=== PATIENT | male | born 1960 | race Caucasian/White ===

== ENCOUNTER → 2019-05-23 | Outpatient (CLI) | payer OTHER ==
[~2019-05-23] MED LIST: ASPI81TA85 PO; ATOR80TA59 PO; FISH1000 PO; LABE10TAB PO; MULTCAP PO
[2019-05-23 18:42] LABS: HEMATOCRIT 48.7 % (42.0-52.0); HEMOGLOBIN 15.1 g/dl (13.5-17.5); MEAN CORPUSCULAR HEMOGLOBIN 27.8 pg (27.0-33.0); MEAN CORPUSCULAR VOLUME 89.5 fl (80.0-96.0); PLATELET COUNT, AUTOMATED 182 10^3/uL (150-450); RED BLOOD COUNT 5.44 10^6/uL (4.30-6.10); WHITE BLOOD COUNT 5.8 10^3/uL (4.0-10.0)
[2019-05-23 19:05] LABS: BLOOD UREA NITROGEN 17 MG/DL (7-18); CALCIUM LEVEL 8.3 MG/DL (8.5-10.1); CARBON DIOXIDE LEVEL 28 MEQ/L (21-32); CHLORIDE LEVEL 112 MEQ/L (98-107); CHOLESTEROL LEVEL 220 MG/DL (<200); CHOLESTEROL RISK RATIO 7.857 (<5); CREATININE FOR GFR 1.18 MG/DL (0.70-1.30); GLOMERULAR FILTRATION RATE > 60.0 (>56); GLUCOSE, FASTING 102 MG/DL (70-100); HDL CHOLESTEROL 28 MG/DL (>40); LDL CHOLESTEROL 122 MG/DL (<100); NON-HDL-C 192 MG/DL; POTASSIUM SERUM 4.3 MEQ/L (3.5-5.1); SODIUM LEVEL 145 MEQ/L (136-145); TRIGLYCERIDES LEVEL 351 MG/DL (<150)
== END ==
LOC: M LAB 17:22
PROVIDERS: ATTEND Internal Medicine Cardiovascular Disease
DX: Z01.810 Encounter for preprocedural cardiovascular examination (principal); I25.119 Atherosclerotic heart disease of native coronary artery with unspecified angina pectoris

== ENCOUNTER 2019-05-26 05:44 | Day surgery (SDC) | payer OTHER ==
[~2019-05-26] VITALS: Ht 182.9 cm; Wt 89.7 kg
[2019-05-26] MEDS ORDERED: LR 1,000 ML IV ONE (06:00)
[2019-05-26] MEDS ORDERED: ceFAZolin SOD 2 GM in IV 1 EA IV ONE (06:00)
[2019-05-26] MEDS ORDERED: MIDAZOLAM INJ 2 MG/2 ML VIAL (J2250) As Ordered ONE ×2 (06:39→07:13)
[2019-05-26] MEDS ORDERED: fentaNYL 100 MCG/2 ML INJECTION (J3010) As Ordered ONE ×3 (06:39→08:38)
[2019-05-26] MEDS ORDERED: LIDOCAINE 2% INJ 100 MG/5 ML SDV (FOR ANES.) As Ordered ONE (07:12)
[2019-05-26] MEDS ORDERED: ROCURONIUM BROMIDE 50 MG/5 ML VIAL As Ordered ONE (07:12)
[2019-05-26] MEDS ORDERED: dexameTHASONE 4 MG/ML 1ML VIAL (J1100) As Ordered ONE (07:12)
[2019-05-26] MEDS ORDERED: ONDANSETRON 4MG/2ML VIAL (J2405) As Ordered ONE (07:12)
[2019-05-26] MEDS ORDERED: propofoL 200 MG/20 ML VIAL As Ordered ONE (07:12)
[2019-05-26] MEDS ORDERED: BUPIVACAINE HCL 0.5% 30 ML VIAL As Ordered ONE (07:46)
[2019-05-26] MEDS ORDERED: ACETAMINOPHEN 1000MG 100ML IV BTL (OFIRMEV) (J0131 PER 10MG) As Ordered ONE (07:52)
[2019-05-26] MEDS ORDERED: ePHEDrine SULFATE 25 MG/5 ML(5MG/ML) SYRINGE As Ordered ONE (08:31)
[2019-05-26] MEDS ORDERED: GLYCOPYRROLATE INJ 0.2 MG/ML 2 ML VIAL As Ordered ONE (08:32)
[2019-05-26] MEDS ORDERED: ONDANSETRON 4MG/2ML VIAL (J2405) IV PRN (09:30)
[2019-05-26] MEDS ORDERED: LR 1,000 ML IV SCH ×2 (09:30)
[2019-05-26] MEDS: fentaNYL 100 MCG/2 ML INJECTION (J3010) IV PRN ×4 (09:32→09:50)
--- NOTE | 2019-05-26 09:41 | REP ---
Left ankle: Three views. History: Fluoroscopic imaging. 5 seconds of fluoroscopy time is reported. Findings: A sequence of three last image hold fluoroscopic spot radiographs of the left ankle are presented. Electronically Signed by Leandro Hernandez MD 05/26/2019 12:13 P
--- NOTE | 2019-05-26 09:41 | REP ---
Right ankle: Five views. History: ORIF right ankle. Intraoperative imaging. Findings: Five views of the right ankle document distal fibular tibial pinning. Ankle mortise is intact. 73 seconds of fluoroscopy time is reported as having been utilized. Electronically Signed by Leandro Hernandez MD 05/26/2019 12:13 P
[2019-05-26] MEDS ORDERED: oxyCODONE 5MG TAB As Ordered ONE (10:12)
[2019-05-26] MEDS ORDERED: oxyCODONE 5MG TAB PO STA (10:19)
[2019-05-26] MEDS ORDERED: oxyCODONE 5MG TAB PO ONE (11:30)
[2019-05-26 12:55] VITALS: BP 173/84
--- NOTE | 2019-05-26 13:38 | RO ---
DATE OF PROCEDURE: 05/26/2019 PREPROCEDURE DIAGNOSIS: Right Maisonneuve fracture. POSTPROCEDURE DIAGNOSIS: Right Maisonneuve fracture. PROCEDURE: Open reduction internal fixation right syndesmosis. SURGEON: Kathleen Hernández MD METALWORKER: SHANNON Amador ANESTHESIA: Laryngeal mask airway (LMA). ESTIMATED BLOOD LOSS: 10 mL. IMPLANTS: Two Synthes 4.0 fully threaded cortical screws. COMPLICATIONS: None. CONDITIONS: Stable in recovery. INDICATIONS: Floyd Tobias is a 59-year-old male who sustained a right Maisonneuve fracture after a mechanical fall. Showed instability of his ankle mortise and widening of the medial clear space on gravity stress view. Risks and benefits of surgery were discussed with the patient in detail and include but are not limited infection, damage to surrounding nerves and blood vessels, continued pain and stiffness, need for additional procedures. Informed consent was obtained in the office. DESCRIPTION OF PROCEDURE: The patient was met in the preoperative holding area where his right lower extremity was marked as the correct operative side. He was then taken to the operating room and placed in the supine position in the operating room table. Bony prominences were well padded. He underwent general anesthesia. A well padded tourniquet was placed on the right upper thigh. He was then prepped and draped in a normal sterile fashion. An official time-out was held where the correct patient, operative site, and operative procedure were verified. X-rays of the contralateral uninjured side were taken and used for comparison throughout the case. Esmarch was used to exsanguinate the leg and tourniquet was inflated to 250 mmHg. An incision was made laterally over the fibula. The superficial peroneal nerve was identified and protected throughout the case. Radiographs were performed and external rotation stress tests showed significant instability of the syndesmosis and ankle mortise. The ankle mortise was reduced with gentle compression of the fibula against the tibia. This was then pinned in place with a 0.062 K-wires. X-rays were performed on AP, lateral and oblique views and found to be satisfactory. I then placed two 4.0 mm fully threaded cortical screws across the syndesmosis. External rotation stress test was then performed and found to be stable. Final radiographs were performed in the AP, lateral, and oblique views and found to be satisfactory. Copious irrigation was performed. Skin was closed with 3-0 Vicryl and skin was with 3-0 nylon. Patient was placed into a well padded splint after a sterile dressing was applied. He was extubated and transferred to the recovery room in stable condition. PLAN: Patient will be non-weightbearing in the right lower extremity. He will be on aspirin for deep venous thrombosis (DVT) prophylaxis. He will keep the leg elevated. I will see him back in 2 weeks for suture removal and cast placement. He will need to be non-weightbearing for 10 weeks.
== END 2019-05-26 13:25 | disposition home or self-care (01) ==
LOC: M SDC 05:44
PROVIDERS: ATTEND Orthopaedic Surgery
DX: S82.861A Displaced Maisonneuve's fracture of right leg, initial encounter for closed fracture (principal); W19.XXXA Unspecified fall, initial encounter; Y92.89 Other specified places as the place of occurrence of the external cause; I25.119 Atherosclerotic heart disease of native coronary artery with unspecified angina pectoris; I73.9 Peripheral vascular disease, unspecified; E78.2 Mixed hyperlipidemia; I11.9 Hypertensive heart disease without heart failure; M54.9 Dorsalgia, unspecified; N52.9 Male erectile dysfunction, unspecified; F17.290 Nicotine dependence, other tobacco product, uncomplicated; Z79.899 Other long term (current) drug therapy; Z79.82 Long term (current) use of aspirin; Z95.5 Presence of coronary angioplasty implant and graft; Z95.1 Presence of aortocoronary bypass graft; Z91.19 Patient's noncompliance with other medical treatment and regimen
CPT/HCPCS: 27829; 76000; C1713; J0131; J0690; J1100; J2250; J2405; J3010

== ENCOUNTER → 2020-02-08 | Outpatient (CLI) | payer OTHER ==
[~2020-02-08] MED LIST changes: -ASPI81TA85 PO; +ASPI81TA86 PO
== END ==
LOC: M LABSMTC 12:00
PROVIDERS: ATTEND Orthopaedic Surgery
DX: Z11.59 Encounter for screening for other viral diseases (principal)